=== PATIENT | female | born 2000 | race Caucasian/White ===

== ENCOUNTER 2022-09-22 17:11 | Emergency (ER) | payer OTHER ==
[2022-09-22 17:32] VITALS: BP 103/72; PULSE 67; RESP 14; TEMP 97.9; BMI 23.4
[2022-09-22 19:12] LABS: BASO % 0.4 % (0-2.0); EOS % 5.5 % (0-4.5); HEMATOCRIT 38.2 % (32.4-45.2); HEMOGLOBIN 12.9 GM/dL (10.7-15.3); MCH 30.5 pg (25.7-33.7); MCHC 33.8 g/dl (32.0-36.0); MEAN CELL VOLUME 90.1 fl (80-96); MEAN PLT VOLUME 6.8 fl (7.5-11.1); MONO % 5.3 % (3.8-10.2); NEUT % 40.8 % (42.8-82.8); PLATELET COUNT 253 10^3/uL (134-434); RBC 4.24 M/mm3 (3.60-5.2); RDW 13.2 % (11.6-15.6); WHITE BLOOD COUNT 6.4 K/mm3 (4.0-10.0)
[2022-09-22 19:23] LABS: POTASSIUM 4.3 mmol/L (3.5-5.1)
[2022-09-22 19:24] LABS: CALCIUM 9.2 mg/dL (8.5-10.1)
[2022-09-22 19:25] LABS: ALBUMIN 4.2 g/dl (3.4-5.0); BLOOD UREA NITROGEN 14.9 mg/dL (7-18); MAGNESIUM 2.3 mg/dL (1.8-2.4)
[2022-09-22 19:28] LABS: CREATININE 0.6 mg/dL (0.55-1.3)
[2022-09-22 19:30] LABS: BILIRUBIN,TOTAL 0.2 mg/dL (0.2-1); TOT PROT 7.3 g/dl (6.4-8.2)
== END 2022-09-22 20:02 | disposition home or self-care (01) ==
LOC: JER 17:11
DX: R00.2 Palpitations (principal); R53.83 Other fatigue
CPT/HCPCS: 36415; 71046-TC-FY; 80053; 83735; 84439; 84443; 84484; 84703; 85025; 93005; 93010; 99285-25

== ENCOUNTER 2023-01-21 08:33 | Emergency (ER) | payer OTHER ==
[2023-01-21 08:41] VITALS: BP 107/65; PULSE 89; RESP 17; TEMP 97.9; BMI 24.4
[2023-01-21 09:56] LABS: EPI CELLS 6 /uL (0-25.1); HYALINE CASTS 0 /uL (0-3.1); URINE APPEARANCE CLEAR; URINE BACTERIA 21 /uL (0-1359); URINE BILIRUBIN NEGATIVE (NEGATIVE); URINE COLOR YELLOW; URINE GLUCOSE (UA) NEGATIVE (NEGATIVE); URINE KETONE NEGATIVE (NEGATIVE); URINE LEUK ESTERASE NEGATIVE (NEGATIVE); URINE NITRITE NEGATIVE (NEGATIVE); URINE PROTEIN NEGATIVE (NEGATIVE); URINE RBC 325 /uL (0-23.9); URINE UROBILINOGEN 0.2 mg/dL (0.2-1.0); URINE WBC 3 /uL (0-25.8)
[2023-01-21] MEDS ORDERED: CEFTRIAXONE 500 MG in DEXTROSE 5%-WATER - 50 ML IVPB ONE (12:17)
[2023-01-21] MEDS ORDERED: CEFTRIAXONE 1 GM/50 ML BAG ONE (12:22)
[2023-01-21 13:11] LABS: BASO % 0.5 % (0-2.0); EOS % 8.6 % (0-4.5); HEMATOCRIT 40.2 % (32.4-45.2); HEMOGLOBIN 13.6 GM/dL (10.7-15.3); LYMPH % 42.8 % (8-40); MCH 31.1 pg (25.7-33.7); MCHC 33.7 g/dl (32.0-36.0); MEAN CELL VOLUME 92.3 fl (80-96); MEAN PLT VOLUME 7.4 fl (7.5-11.1); MONO % 5.3 % (3.8-10.2); NEUT % 42.8 % (42.8-82.8); PLATELET COUNT 265 10^3/uL (134-434); RBC 4.35 M/mm3 (3.60-5.2); RDW 13.3 % (11.6-15.6); WHITE BLOOD COUNT 5.6 K/mm3 (4.0-10.0)
[2023-01-21 13:34] LABS: POTASSIUM 3.5 mmol/L (3.5-5.1)
[2023-01-21 13:37] LABS: CALCIUM 8.4 mg/dL (8.5-10.1)
[2023-01-21 13:38] LABS: ALBUMIN 3.9 g/dl (3.4-5.0); BLOOD UREA NITROGEN 8.4 mg/dL (7-18)
[2023-01-21 13:40] LABS: CREATININE 0.6 mg/dL (0.55-1.3)
[2023-01-21 13:43] LABS: BILIRUBIN,TOTAL 0.6 mg/dL (0.2-1)
== END 2023-01-21 13:53 | disposition home or self-care (01) ==
LOC: JER 08:33
DX: N93.9 Abnormal uterine and vaginal bleeding, unspecified (principal); R30.0 Dysuria
CPT/HCPCS: 36415; 80053; 81003; 84703; 85025; 87086; 87491; 87591; 87661; 99284-25

== ENCOUNTER 2023-09-06 11:38 | Emergency (ER) | payer SELFPAY ==
[2023-09-06 11:51] VITALS: BP 105/73; PULSE 81; RESP 20; TEMP 97.6; BMI 24.4
[2023-09-06 12:13] LABS: PH,URINE 5.5 (5.0-8.0); URINE APPEARANCE CLEAR; URINE BILIRUBIN NEGATIVE (NEGATIVE); URINE COLOR YELLOW; URINE GLUCOSE (UA) NEGATIVE (NEGATIVE); URINE KETONE NEGATIVE (NEGATIVE); URINE LEUK ESTERASE NEGATIVE (NEGATIVE); URINE NITRITE NEGATIVE (NEGATIVE); URINE PROTEIN NEGATIVE (NEGATIVE); URINE UROBILINOGEN 0.2 mg/dL (0.2-1.0)
[2023-09-06 12:15] LABS: HCG,QUALITATIVE URINE Negative
[2023-09-06] MEDS ORDERED: metroNIDAZOLE 250 MG TABLET ONE (12:46)
[2023-09-06] MEDS: metroNIDAZOLE 250 MG TABLET PO ONE (12:47)
== END 2023-09-06 13:41 | disposition home or self-care (01) ==
LOC: JER 11:38 → JERFT 11:38
DX: L29.2 Pruritus vulvae (principal); N89.8 Other specified noninflammatory disorders of vagina
CPT/HCPCS: 36415; 81003; 84703; 87070; 87086; 87205; 87491; 87591; 87661; 99283-25